=== PATIENT | female | born 1965 | race Caucasian/White ===

== ENCOUNTER → 2024-03-01 | Outpatient (RCR) | payer OTHER ==
[~2024-03-01] MED LIST: ADVAIR HFA 115-12 GM IH; ALIGN4 MG PO; ARAVA20 MG PO; CALCIUM 600 +1 EAC8; CHOLESTYRAMINE L4 GM PO; CLINDAMYCIN HC150 MG PO; DICYCLOMINE HCL20 MG; DONNATAL E16.2 MG/5 PO; GABAPENTIN100 MG PO; HYDROCODON-ACE1 EA11; LISINOPRIL-HCT1 EACH; LISINOPRIL-HCT1 EACH PO; MAGNESIUM PO; MULTI-VITAMIN1 EACH PO; NEXIUM40 MG; NEXIUM40 MG PO; NORCO 5-325 TA1 EACH PO; NORCO 7.5-3251 EACH PO; OMEPRAZOLE40 MG PO; PLAQUENIL200 MG; POTASSIUM PO; PROAIR HFA INH8.5 GM IH; SINGULAIR10 MG; TYLENOL; TYLENOL PM; VITAMIN C250 M1 PO; VITAMIN E; pro air inhaler
== END ==
LOC: PT 02-23 07:59
PROVIDERS: ATTEND Neurological Surgery
DX: M54.50 Low back pain, unspecified (principal)

== ENCOUNTER → 2024-04-01 | Outpatient (RCR) | payer OTHER | LOC: PT 03-04 12:38 | PROVIDERS: ATTEND Neurological Surgery | DX: M54.50 Low back pain, unspecified (principal) ==

== ENCOUNTER 2024-04-22 13:53 | Outpatient (RCR) | payer OTHER | END 2024-04-29 | LOC: PT 13:53 | PROVIDERS: ATTEND Neurological Surgery | DX: M54.50 Low back pain, unspecified (principal) ==